=== PATIENT | male | born 1945 | race Caucasian/White ===

== ENCOUNTER → 2016-09-07 | Outpatient (CLI) | payer MEDICARE ==
[2015-07-27 11:25] VITALS: BP 152/73
[~2016-09-07] MED LIST: AMLO10TA2 PO; ATEN50TA PO; CHOL20002 PO; FLUT50DI IH; FURO20TA3 PO; GLUC100018 PO; LISI-334 PO; METF500T4 PO; NAPR500T3 PO; POTA10CA PO; SIMV10TA3 PO; TERA5CAP3 PO
--- NOTE | 2016-09-07 15:12 | KCIC ---
PQRS STATEMENT One or more of the following individualized dose reduction techniques were utilized for this study:1.Automated exposure control2.Adjustment of the mA and/orkVaccording to patient size3.Use of iterative reconstruction technique CT TEMPORAL BONE HISTORY: Reason For Study Reason: RIGHT OTITIS EXTERNA / Spl. Instructions: / History: Drainage RT ear, previous surgery late 1970s Technique: Thin slice contiguous axial images were obtained through the region of the temporal bone in both bone and soft tissue algorithm. Additional coronal and sagittal reconstructions were also performed. FINDINGS: RIGHT temporal bone: The external auditory canal is patent. The tympanic membrane is not identified. The middle ear ossicles are not identified. There are postsurgical changes of previous mastoidectomy. The remaining mastoid air cells are opacified by fluid. There is marked thinning, if not dehiscence of the roof of the the eustachian tube best appreciated on coronal image 13. There are no layering fluid levels. The cochlea is normal in appearance. Semi circular canals are within normal limits. The endolymphatic duct is not enlarged. LEFT temporal bone: The external auditory canal is patent. There are postsurgical changes of previous mastoidectomy. The remaining mastoid air cells are completely opacified by fluid. No evidence for dehiscence of the mastoid roof. The tympanic membrane is not identified. There is a septation or scar near the origin of the station 2. Middle ear ossicles are not identified. Semi circular canals are within normal limits. Endolymphatic duct is not enlarged. The cochlea is normal appearance. Impression: IMPRESSION: There are old postsurgical changes from previous bilateral partial mastoidectomies. The remaining mastoid air cells are completely opacified by fluid bilaterally, likely representing inflammation. There is marked thinning, if not dehiscence of the roof of the right eustachian tube. Both tympanic membranes are not visualized, nor are the middle ear ossicles. Electronically signed by: Bret Baltazar (Sep 07, 2016 15:11:39)
== END | disposition home or self-care (01) ==
LOC: KCIC CT 11:37
PROVIDERS: ATTEND Otolaryngology Otology & Neurotology
DX: H60.8X1 Other otitis externa, right ear (principal); Z98.890 Other specified postprocedural states
CPT/HCPCS: 70480

== ENCOUNTER 2017-09-18 11:00 | Inpatient (IN) | payer MEDICARE ==
[2017-09-18 11:26] LABS: ADD MAN DIFF? NO
[2017-09-18 11:29] LABS: BASO % 1 % (0-3); EOS # 0.1 x10^3/uL (0.0-0.7); EOS % 1 % (0-3); HEMATOCRIT 46.6 % (39.0-53.0); HEMOGLOBIN 15.8 g/dL (13.0-17.5); LYMPH # 1.5 x10^3/uL (1.0-4.8); LYMPH % 18 % (24-48); MEAN CORPUSCULAR HEMOGLOBIN 28 pg (25-35); MEAN CORPUSCULAR HGB CONC 34 g/dL (31-37); MEAN CORPUSCULAR VOLUME 83 fL (79-100); MONO # 0.6 x10^3/uL (0.0-1.1); MONO % 7 % (0-9); NEUT # 6.5 x10^3uL (1.8-7.7); NEUT % 75 % (31-73); PLATELET COUNT 155 x10^3/uL (140-400); RED BLOOD COUNT 5.65 x10^6/uL (4.30-5.70); RED CELL DISTRIBUTION WIDTH 14.5 % (11.5-14.5); WHITE BLOOD COUNT 8.7 x10^3/uL (4.0-11.0)
[2017-09-18] MEDS: IPRATRPIUM/ALBUTEROL 0.5/2.5MG 3 ML NEBU. NEB ×3 (11:34→20:23)
[2017-09-18 11:40] LABS: ANION GAP 13 (6-14); BLOOD UREA NITROGEN 13 mg/dL (8-26); BUN/CREATININE RATIO 8 (6-20); CALCIUM 9.5 mg/dL (8.5-10.1); CARBON DIOXIDE 28 mmol/L (21-32); CHLORIDE 104 mmol/L (98-107); CREATININE 1.6 mg/dL (0.7-1.3); GFR 42.5; GLUCOSE 272 mg/dL (70-99); POTASSIUM 3.5 mmol/L (3.5-5.1); SODIUM 145 mmol/L (136-145)
[2017-09-18 11:41] LABS: PROTHROMBIN TIME PATIENT 12.6 SEC (11.7-14.0)
[2017-09-18 11:46] LABS: ALBUMIN 3.4 g/dL (3.4-5.0); ALBUMIN/GLOBULIN RATIO 0.9 (1.0-1.7); ALK PHOS 43 U/L (46-116); ALT (SGPT) 65 U/L (16-63); AST (SGOT) 56 U/L (15-37); MAGNESIUM 1.9 mg/dL (1.8-2.4); TOTAL BILIRUBIN 0.6 mg/dL (0.2-1.0); TOTAL PROTEIN 7.4 g/dL (6.4-8.2)
[2017-09-18 11:47] LABS: TROPONINI < 0.017 ng/mL (0.000-0.055)
[2017-09-18 11:50] LABS: NT-PRO BNP 643 pg/mL (0-124)
[2017-09-18] MEDS ORDERED: ONDANSETRON PF 4 MG/2 ML VIAL. IV ×2 (13:30→14:15)
[2017-09-18] MEDS ORDERED: ACETAMINOPHEN 500 MG TABLET PO (14:15)
[2017-09-18] MEDS ORDERED: FUROSEMIDE 20 MG TABLET PO (15:30)
[2017-09-18] MEDS: ATENOLOL 50 MG TABLET. PO (15:30)
[2017-09-18] MEDS: amLODIPine BESYLATE 10 MG TABLET PO (15:30)
[2017-09-18] MEDS: CHOLECALCIFEROL (VITAMIN D3) 1,000 UNIT TABLET PO (15:30)
[2017-09-18] MEDS ORDERED: LABETALOL 20 MG/4 ML DISP.SYRIN. IVP (16:00)
[2017-09-18] MEDS ORDERED: HYDROcodone/APAP 5/325MG 1 TAB TABLET PO ×2 (16:00→19:30)
[2017-09-18] MEDS ORDERED: DEXTROSE 50% 25 GM / 50ML DISP.SYRIN. IV (17:15)
[2017-09-18 17:17] LABS: POC GLUCOSE 267 mg/dL (70-99)
[2017-09-18] MEDS: FUROSEMIDE 40 MG/4 ML VIAL. IVP (17:32)
[2017-09-18] MEDS: INSULIN ASPART 300 UNITS/3 ML INSULN.PEN SQ (17:40)
[2017-09-18] MEDS: ATORVASTATIN CALCIUM 10 MG TABLET. PO (20:04)
[2017-09-18] MEDS: SIMVASTATIN 10 MG TABLET PO (20:05)
[2017-09-18] MEDS: TERAZOSIN 5 MG CAPSULE. PO (20:05)
[2017-09-18] MEDS: BUDESONIDE 0.5 MG/2 ML NEBU. NEB (20:23)
[2017-09-18 20:32] LABS: POC GLUCOSE 285 mg/dL (70-99)
[2017-09-18] MEDS ORDERED: NON FORMULARY ITEM (Glucosamine Sulfate 2KCL (Glucosamine) 1,000 MG) PO (21:00)
[2017-09-19 05:48] LABS: ANION GAP 13 (6-14); BLOOD UREA NITROGEN 17 mg/dL (8-26); CALCIUM 8.9 mg/dL (8.5-10.1); CARBON DIOXIDE 28 mmol/L (21-32); CHLORIDE 106 mmol/L (98-107); CREATININE 1.4 mg/dL (0.7-1.3); GFR 49.5; GLUCOSE 195 mg/dL (70-99); MAGNESIUM 1.9 mg/dL (1.8-2.4); POTASSIUM 3.2 mmol/L (3.5-5.1); SODIUM 147 mmol/L (136-145)
[2017-09-19] MEDS: BUDESONIDE 0.5 MG/2 ML NEBU. NEB ×2 (07:50→20:24)
[2017-09-19] MEDS: IPRATRPIUM/ALBUTEROL 0.5/2.5MG 3 ML NEBU. NEB ×4 (07:51→20:24)
[2017-09-19] MEDS ORDERED: INSULIN ASPART 300 UNITS/3 ML INSULN.PEN SQ (08:00)
[2017-09-19 08:46] LABS: POC GLUCOSE 208 mg/dL (70-99)
[2017-09-19] MEDS ORDERED: NON FORMULARY ITEM (Fluticasone Propionate (Flovent 50MCG Diskus) 50 MCG) IH (09:00)
[2017-09-19] MEDS: glipiZIDE 5 MG TABLET PO (09:30)
[2017-09-19] MEDS: FUROSEMIDE 40 MG/4 ML VIAL. IVP (09:30)
[2017-09-19] MEDS: amLODIPine BESYLATE 10 MG TABLET PO (09:30)
[2017-09-19] MEDS: ATENOLOL 50 MG TABLET. PO (09:30)
[2017-09-19] MEDS: CHOLECALCIFEROL (VITAMIN D3) 1,000 UNIT TABLET PO (09:30)
[2017-09-19] MEDS: INSULIN ASPART 300 UNITS/3 ML INSULN.PEN SQ ×3 (09:38→17:00)
[2017-09-19 11:43] LABS: POC GLUCOSE 251 mg/dL (70-99)
[2017-09-19] MEDS: POTASSIUM CHLORIDE 20 MEQ TABLET.ER. PO (13:12)
[2017-09-19 17:14] LABS: POC GLUCOSE 108 mg/dL (70-99)
[2017-09-19 20:27] LABS: POC GLUCOSE 214 mg/dL (70-99)
[2017-09-19] MEDS: ATORVASTATIN CALCIUM 10 MG TABLET. PO (20:58)
[2017-09-19] MEDS: TERAZOSIN 5 MG CAPSULE. PO (20:58)
[2017-09-19] MEDS: SIMVASTATIN 10 MG TABLET PO (20:58)
[2017-09-20 02:56] LABS: ADD MAN DIFF? NO
[2017-09-20 03:01] LABS: BASO # 0.1 x10^3/uL (0.0-0.2); BASO % 1 % (0-3); EOS # 0.3 x10^3/uL (0.0-0.7); EOS % 3 % (0-3); HEMATOCRIT 43.9 % (39.0-53.0); HEMOGLOBIN 14.9 g/dL (13.0-17.5); LYMPH # 2.4 x10^3/uL (1.0-4.8); LYMPH % 26 % (24-48); MEAN CORPUSCULAR HEMOGLOBIN 28 pg (25-35); MEAN CORPUSCULAR HGB CONC 34 g/dL (31-37); MEAN CORPUSCULAR VOLUME 83 fL (79-100); MONO # 0.7 x10^3/uL (0.0-1.1); MONO % 8 % (0-9); NEUT # 5.7 x10^3uL (1.8-7.7); NEUT % 62 % (31-73); PLATELET COUNT 154 x10^3/uL (140-400); RED BLOOD COUNT 5.31 x10^6/uL (4.30-5.70); RED CELL DISTRIBUTION WIDTH 14.8 % (11.5-14.5); WHITE BLOOD COUNT 9.1 x10^3/uL (4.0-11.0)
[2017-09-20 03:10] LABS: ANION GAP 11 (6-14); BLOOD UREA NITROGEN 16 mg/dL (8-26); CALCIUM 9.1 mg/dL (8.5-10.1); CARBON DIOXIDE 29 mmol/L (21-32); CHLORIDE 107 mmol/L (98-107); CREATININE 1.4 mg/dL (0.7-1.3); GFR 49.5; GLUCOSE 180 mg/dL (70-99); POTASSIUM 3.5 mmol/L (3.5-5.1); SODIUM 147 mmol/L (136-145)
[2017-09-20] MEDS: BUDESONIDE 0.5 MG/2 ML NEBU. NEB ×2 (07:57→19:32)
[2017-09-20] MEDS: IPRATRPIUM/ALBUTEROL 0.5/2.5MG 3 ML NEBU. NEB ×4 (07:57→19:32)
[2017-09-20 08:44] LABS: POC GLUCOSE 215 mg/dL (70-99)
[2017-09-20] MEDS: CHOLECALCIFEROL (VITAMIN D3) 1,000 UNIT TABLET PO (09:33)
[2017-09-20] MEDS: glipiZIDE 5 MG TABLET PO (09:33)
[2017-09-20] MEDS: ATENOLOL 50 MG TABLET. PO (09:34)
[2017-09-20] MEDS: amLODIPine BESYLATE 10 MG TABLET PO (09:34)
[2017-09-20] MEDS: FUROSEMIDE 40 MG/4 ML VIAL. IVP (09:34)
[2017-09-20] MEDS: INSULIN ASPART 300 UNITS/3 ML INSULN.PEN SQ ×3 (09:39→17:00)
[2017-09-20 12:22] LABS: POC GLUCOSE 295 mg/dL (70-99)
[2017-09-20 17:27] LABS: POC GLUCOSE 85 mg/dL (70-99)
[2017-09-20] MEDS: SIMVASTATIN 10 MG TABLET PO (21:00)
[2017-09-20 21:08] LABS: POC GLUCOSE 171 mg/dL (70-99)
[2017-09-20] MEDS: TERAZOSIN 5 MG CAPSULE. PO (21:18)
[2017-09-20] MEDS: ATORVASTATIN CALCIUM 10 MG TABLET. PO (21:21)
[2017-09-21] MEDS: BUDESONIDE 0.5 MG/2 ML NEBU. NEB (07:35)
[2017-09-21] MEDS: IPRATRPIUM/ALBUTEROL 0.5/2.5MG 3 ML NEBU. NEB (07:35)
[2017-09-21 07:47] LABS: POC GLUCOSE 168 mg/dL (70-99)
[2017-09-21] MEDS: ATENOLOL 50 MG TABLET. PO (08:32)
[2017-09-21] MEDS: FUROSEMIDE 40 MG/4 ML VIAL. IVP (08:33)
[2017-09-21] MEDS: amLODIPine BESYLATE 10 MG TABLET PO (08:33)
[2017-09-21] MEDS: glipiZIDE 5 MG TABLET PO (08:33)
[2017-09-21] MEDS: CHOLECALCIFEROL (VITAMIN D3) 1,000 UNIT TABLET PO (08:33)
[2017-09-21] MEDS: INSULIN ASPART 300 UNITS/3 ML INSULN.PEN SQ (08:42)
[2017-09-22] MEDS ORDERED: FUROSEMIDE 40 MG TABLET. PO (09:00)
== END 2017-09-21 11:15 | disposition home or self-care (01) | DRG 291 ==
LOC: ER 11:00 → 2 SOUTH 13:02
PROC: 5A09357 Assistance with Respiratory Ventilation, Less than 24 Consecutive Hours, Continuous Positive Airway Pressure (ICD-10-PCS; principal; 2017-09-19)
PROC: 5A09357 Assistance with Respiratory Ventilation, Less than 24 Consecutive Hours, Continuous Positive Airway Pressure (ICD-10-PCS; 2017-09-20)
PROC: 5A09357 Assistance with Respiratory Ventilation, Less than 24 Consecutive Hours, Continuous Positive Airway Pressure (ICD-10-PCS; 2017-09-21)
DX: I13.0 Hypertensive heart and chronic kidney disease with heart failure and stage 1 through stage 4 chronic kidney disease, or unspecified chronic kidney disease (principal); J96.01 Acute respiratory failure with hypoxia; N17.9 Acute kidney failure, unspecified; I50.31 Acute diastolic (congestive) heart failure; J44.1 Chronic obstructive pulmonary disease with (acute) exacerbation; D72.828 Other elevated white blood cell count; E11.22 Type 2 diabetes mellitus with diabetic chronic kidney disease; E66.9 Obesity, unspecified; E78.5 Hyperlipidemia, unspecified; E87.6 Hypokalemia; G47.33 Obstructive sleep apnea (adult) (pediatric); N18.3 Chronic kidney disease, stage 3 (moderate); Z68.33 Body mass index [BMI] 33.0-33.9, adult; Z82.49 Family history of ischemic heart disease and other diseases of the circulatory system; Z87.891 Personal history of nicotine dependence; Z88.2 Allergy status to sulfonamides; Z88.1 Allergy status to other antibiotic agents
CPT/HCPCS: 36415; 71045; 78582; 80048; 80053; 82962; 83735; 83880; 84484; 85025; 85610; 93005; 93306; 94640; 94660; 94760; 95811; 96374; 97116-GP; 97162-GP; 97165-GO; 97530-GP; 97535-GO; 99285; 99285-25; A9540; A9558; J1815; J1940; J7620; J7626